=== PATIENT | male | born 1970 | race American Indian/Alaskan Native ===

== ENCOUNTER 2022-02-12 14:42 | Emergency (ER) | payer SELFPAY ==
[~2022-02-12 14:42] MED LIST: AMIODARONE 150 MG/3 ML INJ IV ONE; ATROPINE 0.1% (1 MG/10 ML) CARDIAC SYRINGE ONE; DOPamine DRIP 800 MG/D5W 250ML PreMix IV ONE; EPINEPHrine 1 MG/10 ML SYRINGE ONE; LIDOCAINE PF 100 MG/5 ML (CARDIAC SYRINGE) IV ONE; SODIUM BICARB 8.4% 50 MEQ/50 ML SYRINGE IV ONE
[2022-02-12] MEDS ORDERED: DOPamine 800 MG/D5W 250ML 800 MG/250 ML BAG IV ONE (14:58)
--- NOTE | 2022-02-12 15:27 | Emergency Department Report ---
HPI - General Time Seen by Provider: 02/12/22 14:56 - HPI HPI: Room 2 The patient is a 51-year-old male presenting in cardiac arrest. Per EMS the patient was playing a video game with his son when he was a witnessed arrest. EMS arrived on scene at 14: Oh to find the patient in asystole. ACLS protocols were initiated and patient was intubated using a Jass airway. Per EMS the patient went into V. fib and required defibrillation approximately 4 times. EMS states they obtained ROSC for approximately 1 minute however the patient devolved again into asystole. Patient received 5 rounds of epi, all 1 round of atropine and 1 sodium bicarb prior to arrival. Upon arrival to the ED the Jass airway was removed and patient was intubated by myself using an 8.0 ET tube and glide scope, ACLS protocols were continued with eventual return of spontaneous circulation ED Past Medical Hx - Past Medical History Hx Hypertension: Yes - Surgical History Past Surgical History?: No - Family History Family history: no significant - Social History Smoking Status: Unknown if ever smoked ED Review of Systems ROS: Stated complaint: CARDIAC ARREST Other details as noted in HPI Comment: Unobtainable due to pts medical conditions Physical Exam - Physical Exam Physical Exam: GENERAL: The patient is well-developed well-nourished male lying on stretcher receiving chest compressions being bagged via Combitube. [] HEENT: Normocephalic. Atraumatic. Pupils 5 mm and nonreactive bilaterally NECK: Supple. Trachea midline CHEST/LUNGS: Breath sounds in right lung with bagging. No breath sounds on the left HEART/CARDIOVASCULAR: Asystole on monitor ABDOMEN: Abdomen is soft, nontender. Patient has normal bowel sounds. There is no abdominal distention. SKIN: There is no rash. There is no edema. There is no diaphoresis. NEURO: GCS 3 T MUSCULOSKELETAL: Right lower extremity IO. There is no evidence of acute injury. ED Course - Reevaluation(s) Reevaluation #1: 02/12/22 15:27 Patient arrested again while hospitalist Dr. Mireles was placing central line. ACLS protocols were continued but there was no return of spontaneous circulation - Intubation Time Out Performed: No Laryngoscope: fiberoptic video scope Size: 3 Assist Device Used: fiberoptic device ET Tube Size: 8 Tube Secured Depth (cm): 22 Tube Secured Location: lips Tube Placement Confirmation: visualized tube passing t, no breath sounds over epi, confirmation by capnometr Patient Tolerated Procedure: no complications Intubation Complications: none ED Medical Decision Making - Differential Diagnosis Cardiac arrest Critical care attestation.: If time is entered above; I have spent that time in minutes in the direct care of this critically ill patient, excluding procedure time. ED Disposition Clinical Impression: Cardiac arrest Disposition: 20 Is pt being admited?: No Does the pt Need Aspirin: No Condition: Stable Time of Disposition: 15:27 (Patient )
--- NOTE | 2022-02-12 15:34 | History and Physical Report ---
History of Present Illness Chief complaint: Unresponsive History of present illness: 51 YO Male with Obesity, Unknown PMH presents to ED for evaluation. Patient presents in cardiac arrest and is unable to provide history. History taken from EMS staff, as well as ED staff. As reported by staff the patient was playing video games with his son this morning when he subsequently lost consciousness. EMS was notified and on arrival the patient was found to be in distress in asystolic arrest. Patient treated with ACLS protocol and intubated in the field and subsequently transported to [facility] for further care and evaluation of the aforementioned symptoms. The patient was seen and evaluated in the emergency department. All lab and imaging studies reviewed. Patient found in asystolic arrest with acute hypoxemic respiratory failure. Patient treated" with ACLS protocol with eventual return of perfusing cardiac rhythm. Patient admitted to ICU secondary to acute hypoxemic respiratory failure complicated by cardiac arrest. Patient experienced repeat cardiac arrest in the emergency department. Patient was subsequently intubated and placed on ventilatory support. Patient treated" with ACLS protocol with eventual return of perfusing cardiac rhythm. Patient again developed cardiac arrest and was again treated" with ACLS protocol. Past History Past Medical History: No medical history, other (Unable to obtain) Past Surgical History: No surgical history, Other (Unable to obtain) Social history: no significant social history, other (Unable to obtain) Family history: no significant family history, other (Unable to obtain) Medications and Allergies Active Meds: Active Medications Dopamine HCl/Dextrose (Dopamine 800 Mg/D5w 250ml) 800 mg in 250 mls @ 0 mls/hr IV TITR ONE; Protocol Stop: 02/12/22 14:59 Review of Systems ROS unobtainable: due to endotracheal tube, due to mental status Exam - Constitutional General appearance: Present: severe distress - EENT Eyes: Present: mydriasis ENT: hearing decreased - Neck Neck: Present: supple - Respiratory Respiratory: bilateral: diminished - Cardiovascular Heart Sounds: Present: S1 & S2. Absent: rub, click - Extremities Extremity abnormal: edema Peripheral Pulses: abnormal - Abdominal General gastrointestinal: Present: soft, non-tender, non-distended, normal bowel sounds Male genitourinary: Present: normal - Integumentary Integumentary: Present: clear, dry, clammy, decreased turgor - Musculoskeletal Musculoskeletal: generalized weakness - Psychiatric Psychiatric: no appropriate mood/affect, no intact judgment & insight, no memory intact - Neurologic Neurologic: no CNII-XII intact, focal deficits, no moves all extremities, no gait normal Assessment and Plan - Patient Problems (1) Cardiac arrest Status: Acute Plan to address problem: Patient treated" with ACLS protocol with eventual return of perfusing cardiac rhythm. Patient admitted to ICU. However for patient to be medically stabilized and transported up to the intensive care unit the patient experienced repeated cardiac arrest. Patient treated in accordance with ACLS protocol without eventual return of perfusing cardiac rhythm. On neurologic exam the patient pupils were fixed and dilated with absent brainstem reflexes. On pulmonary exam the patient was found to have absent breath sounds. On cardiac exam the patient was found to have absent heart sounds. Asystole was observed on a cardiac care nurse. Patient pronounced at 1525 hrs. (2) Acute hypoxemic respiratory failure Status: Acute Plan to address problem: Patient intubated and placed on ventilatory support. Wean vent as tolerated, daily spontaneous breathing trial, sedation holiday, (3) Obesity hypoventilation syndrome Status: Acute Plan to address problem: Balanced diet, increase physical activity discharge, patient pulmonary follow-up for sleep study. (4) Advance care planning Status: Acute Plan to address problem: Disease education conducted, care plan discussed, diagnoses discussed, prognosis discussed, patient is full code. +30 minutes.
--- NOTE | 2022-02-12 15:43 | Procedure Note ---
Date of procedure: 02/12/22 Pre-op diagnosis: Cardiac arrest, acute hypoxemic respiratory failure Post-op diagnosis: same Procedure: Right internal jugular vein triple-lumen catheter placement under ultrasound guidance. The patient was prepped and draped in the usual sterile fashion. A timeout was taken with the patient nurse at bedside to verify the correct patient, correct procedure, and correct operative site. Ultrasound was utilized to localize the right internal jugular vein. Local anesthesia obtained with 1% lidocaine. The Seldinger technique was utilized to access the right internal jugular vein under ultrasound guidance. A seeker needle was advanced to the right internal jugular vein under ultrasound guidance without difficulty. A guidewire was advanced into the right internal jugular vein and this seeker needle subsequently removed over the guidewire. A scalpel was used to incise the skin. A dilator was then passed over the guidewire into the right internal jugular vein and subsequently removed. A preflush triple-lumen catheter was then advanced to the right internal jugular vein without difficulty. All 3 ports flush and draw with ease. A Biopatch was placed at the insertion site. 3O silk suture was then utilized to secure the catheter in place. Estimated blood loss minimal. Complications none. Anesthesia: local Estimated blood loss: minimal Pathology: none Condition: critical Disposition: ICU
--- NOTE | 2022-02-12 15:44 | Death Note ---
Note Date of : 02/12/22 Time of : 15:25 Time Pronounced: 15:25 - Preliminary Cause of (problem) (1) Cardiac arrest Preliminary cause of (2) Acute hypoxemic respiratory failure Preliminary cause of (3) Obesity hypoventilation syndrome Preliminary cause of (4) Advance care planning Preliminary cause of
[2022-02-12 16:48] VITALS: BP 99/71
== END 2022-02-12 20:36 ==
LOC: ED 14:42
DX: I46.9 Cardiac arrest, cause unspecified (principal)
CPT/HCPCS: 31500; 92950; 99285; J0171; J0282; J0461; J1265; J2001; 94002